=== PATIENT | female | born 1990 | race Caucasian/White ===

== ENCOUNTER 2024-03-06 01:40 | Emergency (ER) | payer BC, SELFPAY ==
[2024-03-06] VITALS (13 sets, daily range): BP systolic 70–114; BP diastolic 40–74; BMI 25.0
--- NOTE | 2024-03-06 02:00 | ED.GENMED ---
History of Present Illness
General
Chief Complaint: Abdominal Pain
Source: patient
Exam Limitations: none
Time Seen by Provider: 03/06/24 01:50
Nursing documentation reviewed up to this point in time: agreed with
History of Present Illness
History of Present Illness:
This is a 33-year-old woman 2 para 1-0-0-1 currently 4 weeks with first day last menstrual period February 02. She presents with abrupt onset of severe right lower quadrant/right pelvic pain that began just prior to arrival accompanied
with profuse diaphoresis, nausea, vomiting. She did pass 1 soft stool after onset of pain. She denies hematochezia. Denies black or tarry stools. No vaginal discharge nor bleeding. No dysuria no urgency no hematuria. No flank pain. No history
of similar episodes of pain in the past.
She has a 3-year-old daughter at home, that was an uneventful , delivered full-term .
No history of miscarriages nor tubal pregnancies. No prior history of STD.
No history of kidney stones however has a sister with prior history of kidney stones.
She takes no medications other than vitamins.
She follows with [facility].
Past History
Past History
ED Past Medical History: Asthma
ED Past Surgical History: (2020)
Social History
Tobacco: Non-smoker
Alcohol: None
Personal:
Living: with family
Employment: Employed
Family History
Family History: Other (Sister with history of kidney stones)
Phy Exam
Physical Exam
Physical Exam:
GENERAL: 33-year-old woman appears her stated age, awake and alert appears in moderate distress. Skin is moderately pale, moderately diaphoretic. She was quickly brought back from triage to exam room for an quickly repositioned from wheelchair to
supine positioning on stretcher. With supine positioning, skin pallor and diaphoresis have promptly improved. Moderately hypotensive, improving with supine positioning.
EYE: pupils equal and reactive. anicteric
NECK: Supple, nontender, no meningismus, no significant adenopathy.
ENT: posterior pharynx is clear, oral mucosa is moist. No rhinorrhea.
CARDIAC: Regular rate and rhythm. no murmur.
LUNGS: Clear breath sounds bilaterally, no acute respiratory distress, no wheezes/rales/rhonchi
ABDOMEN: Soft, nondistended, mild tenderness suprapubic as well as right lower pelvic region without rebound nor guarding nor rigidity, no cvat. normoactive BS.
NEUROLOGICAL: Alert and oriented x3, no focal neuro deficits.
SKIN: Cool and moderately diaphoretic, initially moderate skin pallor while sitting in wheelchair, skin intact. No rash.
MUSCULOSKELETAL: No C/C/E. peripheral pulses are full and equal b/l. No palpable tenderness.
PSYCH: Normal and appropriate interaction.
Course
Orders/Labs/Results
Orders:
Orders
03/06/24 01:57
IV Insert/Care/Rem.- Treatment PRN
0.9% Sodium Chloride 1000 ml [Nss] 1,000 ml IV BOLUS
Metoclopramide [Reglan] 10 mg IV NOW STA
Morphine Sulfate 4 mg IV NOW STA
US W Transvaginal Stat
Reason For Exam: acute severe R pelvic pain
03/06/24 02:04
Type+Screen Urgent
[employer] W[employer] Number:
Beta HCG Quantitative Urgent
Is this a screen?: No
Complete Blood Count/With Diff Urgent
Comprehensive Metabolic Panel Urgent
03/06/24 03:29
Urinalysis Reflex To Culture Urgent
Specimen Description:
Date Specimen was Collected: 03/06/24
Time Specimen was Collected: 03:28
Abnormal Lab Results
03/06/24
02:04
RBC 4.11 L 10^6/uL
(4.20-5.40)
Hgb 11.5 L g/dL
(12.0-16.0)
Hct 33.5 L %
(37.0-47.0)
MPV 13.8 H fL
(7.4-10.4)
Absolute Lymphs (auto) 3.6 H 10^3/uL
(1.2-3.4)
Glucose 113 H mg/dl
(70-99)
03/06/24 02:04
03/06/24 02:04
Vital Signs
Initial and Last Documented VS:
Initial Vital Signs
Pulse Resp BP Pulse Ox
108 24 70/40 98
03/06/24 01:49 03/06/24 01:49 03/06/24 01:49 03/06/24 01:49
Last Documented Vital Signs
Temp Pulse Resp BP Pulse Ox
98.4 F 91 22 97/63 100
03/06/24 01:54 03/06/24 04:00 03/06/24 04:00 03/06/24 04:00 03/06/24 04:00
Information
Weeks gestation: Weeks: (4)
Location: Location: (unknown at this time. HCG 555. No identifiable IUP nor adnexal mass)
MDM/Problems Addressed
Differential Diagnosis Includes:
Significant concern for ruptured ectopic thus we will plan for stat ultrasound.
Will resuscitate with IV normal saline wide open and medicate for pain with IV morphine, nausea with IV Reglan.
Other consideration is ovarian torsion, ruptured ovarian cyst, renal colic/ureteric stone, less likely appendicitis, small bowel obstruction.
Will check labs including quantitative hCG, type and Rh, urinalysis.
*Radiology
Radiology exam reviewed: radiology read reviewed
*Pulse Oximetry
Patient hypoxic: no
*[employer] Interpretation
Rate: normal
Interpretation: normal
Rhythm: sinus
*Critical Care Note
Total Time (30-74mins, 75-104mins- exclusive of procedures): 15
comment:
Critical care statement: A total of 15 minutes of critical care time was provided for this patient. This includes management of unstable vital signs, evaluation of the patient at bedside, reviewing the patient's pertinent medical records, discussion
with consultants, review of old EKGs and review of pertinent medical records. This time with separate from time utilized to perform the aforementioned documented procedures
Update Note
Update Note:
Patient feeling markedly improved after IV fluids, pain medication and antiemetic.
Initial brief hypotension has resolved and she remains hemodynamically stable.
Quantitative hCG is 555.
Ultrasound shows no identifiable IUP nor adnexal masses. Minimal, physiologic free fluid in the pelvic cul-de-sac. Mildly enlarged right ovary up to 5 cm with a 4.2 cm benign appearing follicular cyst. Normal arterial and venous flow to bilateral
ovaries. No paraovarian mass.
Labs are unremarkable as is urinalysis.
O+ type and Rh.
Will trial oral fluids and continue to observe.
03/06/2024 0556 AM
Patient continues to feel well, no return of abdominal pain, tolerating oral fluids and has been ambulatory to and from the bathroom without symptomatology.
I suspect she presented suffering with a vasovagal episode.
At this point unclear as to cause for lower abdominal pain other than right ovarian cyst. Patient will require prompt follow-up with her family day carer for recheck and serial hCG as well as repeat ultrasound.
ED Attending Note
-
Portions of this chart may have been created with voice recognition software.� Occasional wrong word or��sound alike� substitutions may have occurred due to the inherent limitations of voice recognition software.
Discharge Plan
Departure
Patient Disposition: Home (Routine Discharge)
Date of Disposition: 03/06/24
Time of Disposition: 05:57
Patient with high blood pressure during this ER visit?: No
Condition: Good
Discharge Problem:
early unknown location, Cyst of right ovary during , acute vasovagal episode
Instructions: Stomach Pain in Early , Ovarian Cyst ED
Activity Restrictions/Additional Instructions:
Call your family day carer today to schedule prompt follow-up for recheck/reevaluation.
Interventions
Interventions:
*Risk Screen - Suicide Last Done: 03/06/24 01:56
*General Assessment Last Done: 03/06/24 01:56
*Neglect/Abuse Screening Last Done: 03/06/24 01:56
RT-Gaclcg-Laoyvcchbb Assessment Last Done: 03/06/24 02:40
Discharge Date and Time
Print Language: MALAY
[2024-03-06] MEDS: REGLAN 10 MG IV (02:10)
[2024-03-06] MEDS: NSS 1000 IV (02:10)
[2024-03-06] MEDS: MORPHINE SULFATE 4 MG IV (02:10)
[2024-03-06 02:28] LABS: % Basophils 0.4 % (0-2); % Eosinophils 1.4 % (0-6); % Immature Granulocytes 0.2 % (0-0.5); % Monocytes 6.8 % (1.7-9.3); % Neutrophils 53.2 % (42.2-75.2); Absolute Eosinophils 0.1 10^3/uL (0-0.7); Absolute Lymphocytes 3.6 10^3/uL (1.2-3.4); Absolute Monocytes 0.6 10^3/uL (0.1-0.6); Absolute Neutrophils 5.1 10^3/uL (1.4-6.5); Hematocrit 33.5 % (37.0-47.0); Hemoglobin 11.5 g/dL (12.0-16.0); Mean Corp Hgb Conc. 34.3 g/dL (33.0-37.0); Mean Corpuscular Volume 81.5 fL (81.0-99.0); Mean Platelet Volume 13.8 fL (7.4-10.4); Nucleated Red Blood Cells % 0 %; Platelet Count 177 10^3/uL (130-400); Red Blood Cell Count 4.11 10^6/uL (4.20-5.40); Red Cell Dist. Width 14.1 % (11.5-14.5); White Blood Cell Count 9.5 10^3/uL (4.8-10.8)
[2024-03-06 02:37] LABS: ALT (SGPT) 16 U/L (0-35); AST (SGOT) 23 U/L (14-36); Albumin 4.5 g/dl (3.5-5.0); Alkaline Phosphatase 53 U/L (38-126); Blood Urea Nitrogen 16 mg/dl (7-17); Calcium 9.5 mg/dl (8.4-10.2); Carbon Dioxide 25 mmol/L (22-30); Chloride 105 mmol/L (98-107); Estimated Creatinine Clearance 86 ml/min; Glucose 113 mg/dl (70-99); Potassium 3.6 mmol/L (3.5-5.1); Sodium 137 mmol/L (135-145); Total Bilirubin 0.2 mg/dl (0.2-1.3); Total Protein 7.1 g/dl (6.3-8.2); eGFR > 60.00
[2024-03-06 02:58] LABS: Beta HCG Quantitative 555.27 mIU/ml
[2024-03-06 03:40] LABS: Urine Albumin Trace (Neg - Trace); Urine Bilirubin Negative (Negative); Urine Character Clear (Clear); Urine Color Yellow; Urine Glucose Negative (Negative); Urine Ketone Negative (Negative); Urine Leukocyte Negative (Negative); Urine Nitrite Negative (Negative); Urine Occult Blood Negative (Negative); Urine Specific Gravity 1.025 (<1.030); Urine Urobilinogen Negative (Neg - 1+)
== END 2024-03-06 06:13 | disposition home or self-care (01) ==
LOC: EMR 01:40
PROVIDERS: EMERGENCY PHYSICIAN Emergency Medicine
DX: O36.80X0 Pregnancy with inconclusive fetal viability, not applicable or unspecified (principal); O34.81 Maternal care for other abnormalities of pelvic organs, first trimester; N83.201 Unspecified ovarian cyst, right side; O99.891 Other specified diseases and conditions complicating pregnancy; R55 Syncope and collapse; O99.511 Diseases of the respiratory system complicating pregnancy, first trimester; J45.909 Unspecified asthma, uncomplicated; Z3A.01 Less than 8 weeks gestation of pregnancy
CPT/HCPCS: 99284; 96374; 96375; 96361; 76801; 76817; 80053; 81003; 84702; 85025; 86850; 86900; 86901